=== PATIENT | male | born 1985 | race Asian ===

== ENCOUNTER 2019-02-03 19:48 | Emergency (ER) | payer BC ==
[~2019-02-03] VITALS: Ht 162.6 cm; Wt 60.0 kg
[2019-02-03 19:52] VITALS: BP 158/90
[2019-02-03] MEDS ORDERED: DEXAMETHASONE 4 MG TABLET ONE (20:11)
[2019-02-03] MEDS ORDERED: DEXAMETHASONE 4 MG TABLET PO ONE (20:30)
== END 2019-02-03 21:00 | disposition home or self-care (01) ==
LOC: ED 20:38
DX: J02.9 Acute pharyngitis, unspecified (principal); R05 Cough; Z72.9 Problem related to lifestyle, unspecified; Z87.891 Personal history of nicotine dependence
CPT/HCPCS: 71046; 87081; 87880; 99284

== ENCOUNTER 2021-02-11 12:59 | Emergency (ER) | payer SELFPAY ==
[~2021-02-11] VITALS: Ht 157.5 cm; Wt 93.1 kg
[2021-02-11 13:04] VITALS: BP 130/89
--- NOTE | 2021-02-11 13:29 | NUR ---
PT MEDICATED PER MAR. COVID SWAB WALKED TO LAB
[2021-02-11] MEDS ORDERED: DEXAMETHASONE 4 MG/ML, 1ML PO ONE (13:30)
== END 2021-02-11 14:15 | disposition home or self-care (01) ==
LOC: ED 14:00
DX: U07.1 COVID-19 (principal); B34.9 Viral infection, unspecified; R06.02 Shortness of breath
CPT/HCPCS: 71045; 99284; J1100; U0003; U0005